=== PATIENT | male | born 1980 | race African-American/Black ===

== ENCOUNTER 2018-12-23 10:37 | Day surgery (SDC) | payer MEDICAID ==
[~2018-12-23] VITALS: Ht 175.3 cm; Wt 72.6 kg
[2018-12-23] MEDS ORDERED: LACTATED RINGERS 1,000 ML IV SCH (11:15)
[2018-12-23 11:34] LABS: UCG SCREEN NEGATIVE
[2018-12-23] MEDS ORDERED: TEST200V27 SQ (12:38)
[2018-12-23] MEDS ORDERED: HYDR-4094 PO (12:38)
[2018-12-23] MEDS ORDERED: BUPR1PAT2 TD (12:38)
[2018-12-23] MEDS ORDERED: MIDAZOLAM HCL 2 MG/2 ML VIAL ONE (13:35)
[2018-12-23] MEDS ORDERED: PROPOFOL 200MG/20ML VIAL IV ONE ×3 (13:38→14:30)
== END 2018-12-23 16:00 | disposition home or self-care (01) ==
LOC: OR 10:37
PROVIDERS: ATTEND Internal Medicine Gastroenterology
DX: K58.0 Irritable bowel syndrome with diarrhea (principal); K64.8 Other hemorrhoids; K31.4 Gastric diverticulum; Z86.010 Personal history of colon polyps; Z80.0 Family history of malignant neoplasm of digestive organs; Z98.84 Bariatric surgery status; Z98.890 Other specified postprocedural states; Z86.2 Personal history of diseases of the blood and blood-forming organs and certain disorders involving the immune mechanism
CPT/HCPCS: 43239; 45380; 81025; 88305; 88312; 88313; J2250; J2704